=== PATIENT | female | born 1995 | race Hispanic/Latino ===

== ENCOUNTER 2019-11-09 21:53 | Emergency (ER) | payer BC ==
[~2019-11-09] VITALS: Ht 147.3 cm; Wt 84.0 kg
[2019-11-09] MEDS ORDERED: MINO50CA3 PO (21:58)
[2019-11-10] MEDS ORDERED: [UNRECOGNIZED DRUG - CODE] PO (00:14)
[2019-11-10 00:16] VITALS: BP 135/82
== END 2019-11-10 00:20 | disposition home or self-care (01) ==
LOC: M ED 21:53
DX: T19.2XXA Foreign body in vulva and vagina, initial encounter (principal); X58.XXXA Exposure to other specified factors, initial encounter; Y92.89 Other specified places as the place of occurrence of the external cause; Z79.899 Other long term (current) drug therapy